=== PATIENT | male | born 1995 | race American Indian/Alaskan Native ===

== ENCOUNTER 2016-11-10 07:35 | Emergency (ER) | payer SELFPAY ==
[2016-11-10 08:19] VITALS: BP 141/80
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
== END 2016-11-10 10:25 | disposition home or self-care (01) ==
LOC: ED 07:35
DX: R04.0 Epistaxis (principal)
CPT/HCPCS: 99282